=== PATIENT | female | born 1995 | race African-American/Black ===

== ENCOUNTER 2019-06-14 13:29 | Emergency (ER) | payer SELFPAY ==
[~2019-06-14] VITALS: Ht 162.6 cm; Wt 59.0 kg
[2019-06-14 13:37] VITALS: BP 119/66
== END 2019-06-14 18:32 | disposition left against medical advice (07) ==
LOC: ER 18:17
DX: Z53.21 Procedure and treatment not carried out due to patient leaving prior to being seen by health care provider (principal)

== ENCOUNTER 2021-12-30 12:33 | Observation (INO) | payer MEDICAID ==
[~2021-12-30] VITALS: Ht 162.6 cm; Wt 71.2 kg
== END 2021-12-30 15:30 | disposition home or self-care (01) ==
LOC: 8 EST LDRP 12:33
PROVIDERS: ADMIT Specialist; ATTEND Specialist
DX: O46.93 Antepartum hemorrhage, unspecified, third trimester (principal); Z3A.32 32 weeks gestation of pregnancy
CPT/HCPCS: 59025; 76805; 76818; G0378; 99281